=== PATIENT | female | born 1965 | race Caucasian/White ===

== ENCOUNTER 2019-01-24 14:14 | Emergency (ER) | payer BC ==
[2019-01-24 15:00] VITALS: BP 138/84
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
[2019-01-24] MEDS ORDERED: Ketorolac INJ* 30 MG/ML 1 ML VIAL IM ONE (15:45)
== END 2019-01-24 16:51 | disposition home or self-care (01) ==
LOC: UCCORT 14:14
DX: M54.2 Cervicalgia (principal); M79.89 Other specified soft tissue disorders; I10 Essential (primary) hypertension; I73.00 Raynaud's syndrome without gangrene; F17.210 Nicotine dependence, cigarettes, uncomplicated
CPT/HCPCS: 71046; 72040; 96372; 99201; G0463; J1885